=== PATIENT | female | born 1935 | race Caucasian/White ===

== ENCOUNTER → 2016-10-19 | Outpatient (CLI) | payer MEDICARE | END | disposition home or self-care (01) | LOC: RADCTMAIN 14:05 | PROVIDERS: ATTEND Nurse Practitioner Family | DX: G52.9 Cranial nerve disorder, unspecified (principal); H90.42 Sensorineural hearing loss, unilateral, left ear, with unrestricted hearing on the contralateral side; H93.19 Tinnitus, unspecified ear | CPT/HCPCS: 82565; 84520 ==

== ENCOUNTER → 2016-11-09 | Outpatient (CLI) | payer MEDICARE ==
--- NOTE | 2016-11-09 14:19 | CT ---
EXAMINATION TYPE: CT brain wo con DATE OF EXAM: 11/09/2016 2:11 PM COMPARISON: NONE HISTORY: Disorder of cranial nerves CT DLP: 1089.70 mGycm Automated exposure control for dose reduction was used. FINDINGS: There are generalized changes of sulcal prominence and ventriculomegaly, compatible with atrophic ihsan nge. There is diffuse periventricular white matter lucency, compatible with chronic white matter isch emic change. There is no acute focal lesion, mass effect or midline shift identified. I do not see ev idence of intracranial blood. There have been previous [place]-Gideon procedures bilaterally. There is also been a posterior ethmoid and sphenoid activities. IMPRESSION: 1. NO ACUTE INTRACRANIAL ABNORMALITY. 2. ATROPHIC CHANGE. 3. CHRONIC WHITE MATTER ISCHEMIC CHANGE. 4. POSTSURGICAL CHANGE.
--- NOTE | 2016-11-09 14:23 | CT ---
EXAMINATION TYPE: CT iac wo con DATE OF EXAM: 11/09/2016 2:11 PM COMPARISON: NONE HISTORY: Disorder of cranial nerves CT DLP: 1089.70mGycm Automated exposure control for dose reduction was used. FINDINGS: The bladder is acoustic this is not widened on either side. Middle and inner ear structures appear normal bilaterally. There is fluid in the left mastoid air cells. There is underaeration of t he right mastoid air cells. There is been previous [place] Gideon procedures bilaterally as well as pos terior ethmoid and sphenectomy. No CP angle mass lesion is seen. IMPRESSION: 1. Evidence of a left-sided mastoiditis. 2. Postsurgical change. 3. I do not see evidence of a CP angle mass lesion.
== END | disposition home or self-care (01) ==
LOC: RADCTMAIN 13:24
PROVIDERS: ATTEND Family Medicine
DX: G31.9 Degenerative disease of nervous system, unspecified (principal); I67.82 Cerebral ischemia; H70.92 Unspecified mastoiditis, left ear; Z98.890 Other specified postprocedural states
CPT/HCPCS: 70450; 70480